=== PATIENT | male | born 1975 | race Caucasian/White ===

== ENCOUNTER 2016-10-06 17:31 | Emergency (ER) | payer OTHER ==
--- NOTE | 2016-10-06 18:47 | RAD ---
Name: ROSMERY COTA Exam: Left shoulder Comparison: None Clinical history: Trauma. Left shoulder pain. Findings: 3 radiographs of left shoulder are submitted. There is malalignment at the AC joint without joint space widening. Coracoclavicular and glenohumeral distances are normal. Subacromial space is maintained. There is no fracture or suspicious calcification. Visualized left lung is clear. Impression: Left AC joint separation. There is no current evidence for fracture
--- NOTE | 2016-10-06 18:48 | RAD ---
Name: ROSMERY COTA Exam: Two-view chest Comparison: None Clinical history: Right posterior rib pain Findings: 2 views of the chest are submitted. The heart mediastinum and hilar structures are within normal limits. There is no failure, infiltrate, pleural effusion or pneumothorax. Regional skeleton is within normal limits. Rib fracture is not appreciated on this exam. Impression: No acute cardiopulmonary process
[2016-10-06] MEDS ORDERED: IBUPROFEN 600 MG TABLET ONE (19:32)
--- NOTE | 2016-10-07 07:46 | RAD ---
Exam: Unilateral right rib series COMPARISON: Chest radiograph same day INDICATION: Right-sided rib pain. FINDINGS: 4 views of the right ribs were obtained. BB was placed in region of maximum pain. No displaced rib fracture, periosteal reaction or other osseous lesions identified within the right ribs. Right hemithorax is clear. IMPRESSION: Negative unilateral right rib series.
== END 2016-10-06 19:48 | disposition home or self-care (01) ==
LOC: ED 17:31
DX: S43.102A Unspecified dislocation of left acromioclavicular joint, initial encounter (principal); S20.211A Contusion of right front wall of thorax, initial encounter; W22.8XXA Striking against or struck by other objects, initial encounter; Y93.23 Activity, snow (alpine) (downhill) skiing, snowboarding, sledding, tobogganing and snow tubing; Y92.828 Other wilderness area as the place of occurrence of the external cause